=== PATIENT | female | born 1970 | race Caucasian/White ===

== ENCOUNTER → 2018-05-10 09:46 | Outpatient (CLI) | payer MEDICARE, SELFPAY ==
--- NOTE | 2018-05-10 09:56 | XR_ITS ---
XR hand LT min 3V HISTORY: ITS.REASON: RT HAND PAIN,DEFORMITY OF FINGERS ON BOTH HANDS ORDERING PHYSICIAN: Dagmar Ames PATIENT AGE: 47 years COMPARISON: None FINDINGS: No fracture or dislocation. No lytic or blastic change. There is normal mineralization.. The joint spaces are well-preserved. No significant degenerative/arthritic changes. No erosive changes evident.. IMPRESSION: Negative, no acute finding
--- NOTE | 2018-05-10 09:56 | XR_ITS ---
XR hand RT min 3V HISTORY: Pain and deformity ORDERING PHYSICIAN: Dagmar Ames PATIENT AGE: 47 years COMPARISON: None FINDINGS: There is flexion of the second digit. Cortical irregularity with subtle erosive change is present at the tuft of the distal phalanx of the second digit. No other significant anomalies are evident. IMPRESSION: Cortical irregularity with questionable erosive change involving the tuft of the distal phalanx of the second digit with flexion deformity of the second digit. This could be related to prior trauma or even osteomyelitis. Please correlate clinical findings,
== END ==
PROVIDERS: PCP Internal Medicine Adolescent Medicine; Visit Provider Nurse Practitioner Family
DX: M79.641 Pain in right hand (principal); M20.001 Unspecified deformity of right finger(s); M20.002 Unspecified deformity of left finger(s)
CPT/HCPCS: 73130

== ENCOUNTER → 2018-05-18 10:19 | Outpatient (CLI) | payer MEDICARE, SELFPAY ==
--- NOTE | 2018-05-18 09:03 | MM_ITS ---
MM Dig screening mamm BI w/CAD ORDERING PHYSICIAN : Yoana Palacios PATIENT AGE: 47 years GENDER: Female COMPARISON: December 2016 Also studies dating back to July 20122010 INDICATION: ITS.REASON: SCREENING. No hormones no new complaints. Patient does not speak Family history. Mother with breast cancer premenopausal TECHNIQUE: Standard CC and MLO images were obtained. R2 CAD reviewed. . FINDINGS: Patient is lost 15 pounds since last years exam. Moderately dense breast tissue bilaterally with actually overall slight more pronounced diffuse breast density. No exogenous hormones listed... But the increased fibroglandular elements bilaterally are suggestive of such. Increased breast density seen throughout both breast bilaterally. This denser breast pattern does decrease sensitivity of mammography however comparison to prior film very helpful. Self breast examination be encouraged in helpful in this patient. LEFT BREAST:On final review there is suggestion of a 9 mm area of nodularity which is more apparent on today's MLO view than previous studies. More likely summation shadow as it does seem to dissipate on other views. However does warrant warrant spot views in the AP and lateral view to further evaluate.. It is labeled X on the MLO view. Only question is seen on the cc view at the central breast towards upper-outer quadrant RIGHT BREAST:No prominent findings. There is a area of slight increased density which I believe reflects summation shadow likely accentuated by the diffuse increased plantar elements bilaterally. This vague round density It is labeled A on measuring up to 6 mm size at the superior central breast. Suggest spot views here as well when the patient returns. Note this report appear to be completed & finalized in the dictation system near 2 weeks ago but now show back up on my draft less and is re-signed IMPRESSION--------- : There is increased fibroglandular prominent throughout both breast since prior studies.. The patient denies exogenous hormones. Thus this may reflect her interval weight loss along and/or possible possibly premenstrual status Left breast.:. Vague 9 mm area of more focal density at the superior central breast on MLO view., 1:00. Most likely summation shadow and a reflection of the increased glandular elements but would recommend additional CC and MLO spot views to further evaluate. Right breast.: When the patient returns also suggest spot views right breast to further imaging questionable subtle 6 mm area of density superior breast towards 11 o'clock position. Again this also likely reflects reflection of summation shadow in the increased glandular elements accentuating elements. Recommend CC and MLO spot views here right as well. I favor these are summation shadows and may dissipate on the spot views But if These areas persist on spot views, then ultrasound may be warranted subsequent to further evaluate. BI-RADS Category: 0 Need Additional Imaging Evaluaiton RECOMMENDED FOLLOW-UP: IMM - IMMEDIATE FOLLOW-UP RECOMMENDED (A letter has been sent to the patient regarding results of the study.)
--- NOTE | 2018-05-18 10:24 | MM_ITS ---
MM Dig screening mamm BI w/CAD ORDERING PHYSICIAN : Yoana Palacios PATIENT AGE: 47 years GENDER: Female COMPARISON: December 2016 Also studies dating back to July 20122010 INDICATION: ITS.REASON: SCREENING. No hormones no new complaints. Patient does not speak Family history. Mother with breast cancer premenopausal TECHNIQUE: Standard CC and MLO images were obtained. R2 CAD reviewed. . FINDINGS: Patient is lost 15 pounds since last years exam. Moderately dense breast tissue bilaterally with actually overall slight more pronounced diffuse breast density. No exogenous hormones listed... But the increased fibroglandular elements bilaterally are suggestive of such. Increased breast density seen bilaterally which does somewhat decrease sensitivity of mammography however comparison to prior film very helpful. Self breast examination be encouraged in helpful in this patient. LEFT BREAST:On final review there is a 9 mm area of nodularity which is more apparent today than previous studies. More likely summation shadow but does warrant spot views in the AP and lateral view. It is labeled X on the MLO view. Only question is seen on the cc view at the central breast towards upper-outer quadrant RIGHT BREAST:No prominent findings. There is a area of slight increased density which I believe reflects the weight loss and summation shadow but this is labeled a on measuring up to 6 mm size at the superior central breast. Suggest spot views here as well when the patient returns. IMPRESSION--------- : There is increased fibroglandular prominent throughout both breast since prior studies.. The patient denies exogenous hormones. Thus this may reflect her interval weight loss along with possible possibly premenstrual status Left breast.:. 9 mm area of more focal density at the superior central breast, 1:00. Most likely summation shadow and a reflection of increased glandular elements but would recommend additional CC and MLO spot views. Right breast.: Question of very subtle 6 mm area of density superior breast towards 11 o'clock position. Again more likely reflection of summation shadow and the diffuse increased glandular elements. Recommend CC and MLO spot views here as well. I favor these are summation shadows But if These areas persist on spot views ultrasound may be warranted subsequent BI-RADS Category: 0 Need Additional Imaging Evaluaiton RECOMMENDED FOLLOW-UP: 3M - 3 MONTH FOLLOWUP (A letter has been sent to the patient regarding results of the study.)
== END ==
PROVIDERS: Family Provider Internal Medicine Adolescent Medicine; PCP Internal Medicine Adolescent Medicine; Visit Provider Nurse Practitioner Family
DX: Z12.31 Encounter for screening mammogram for malignant neoplasm of breast (principal)
CPT/HCPCS: 77067

== ENCOUNTER → 2018-06-08 13:45 | Outpatient (CLI) | payer MEDICARE, SELFPAY ==
--- NOTE | 2018-06-08 10:45 | MM_ITS ---
MM Dig mamm BI DX w/CAD, US breast RT complete, US breast LT complete INDICATION: Follow-up abnormal mammogram ORDERING PHYSICIAN: Yoana Palacios PATIENT AGE: 47 years COMPARISON: 05/18/2018, 01/06/2017 TECHNIQUE: Problem-solving views of both breasts along with bilateral breast ultrasound FINDINGS: Very dense fibroglandular tissue which decreases the sensitivity of mammography. Right breast: The areas of asymmetric density are less apparent on the spot compression views. No malignant appearing mass or malignant appearing microcalcification evident. Left breast: The asymmetric density in the retroareolar region on the left is less apparent on the spot compression views. Right breast ultrasound: Small complex cyst is present at 12:00 at 5 x 4 mm. Small nodes are present in the axilla. Left breast ultrasound: 4 mm cyst at 1:00. Small nodes in the axilla. IMPRESSION: No convincing evidence of malignancy. Areas of asymmetric density are less apparent on the spot compression views. Small bilateral complex breast cysts on ultrasound. Recommend bilateral 6 month mammographic and sonographic follow-up. BI-RADS Category: 3 Benign Finding Short Term Follow-up RECOMMENDED FOLLOW-UP: 6M - 6 MONTH FOLLOW-UP (A letter has been sent to the patient regarding results of the study.)
== END ==
PROVIDERS: Family Provider Internal Medicine Adolescent Medicine; PCP Internal Medicine Adolescent Medicine; Visit Provider Nurse Practitioner Family
DX: R92.8 Other abnormal and inconclusive findings on diagnostic imaging of breast (principal)
CPT/HCPCS: 77066

== ENCOUNTER → 2018-06-15 08:21 | Outpatient (CLI) | payer MEDICARE, SELFPAY | PROVIDERS: Family Provider Internal Medicine Adolescent Medicine; PCP Internal Medicine Adolescent Medicine; Visit Provider Nurse Practitioner Family | DX: R92.8 Other abnormal and inconclusive findings on diagnostic imaging of breast (principal) | CPT/HCPCS: 76641 ==

== ENCOUNTER → 2023-01-13 10:36 | Outpatient (CLI) | payer MEDICARE, SELFPAY ==
--- NOTE | 2023-01-13 10:41 | MM_ITS ---
PROCEDURE INFORMATION: Exam: MG Bilateral Screening 3D Mammography Exam date and time: 01/13/2023 10:37 AM Age: 52 years old Clinical indication: Screening examination TECHNIQUE: Imaging protocol: Bilateral Screening tomosynthesis and 2D mammography including computer-aided detection (CAD) when performed. COMPARISON: 1. MG DXBI MM Dig mamm BI DX w/CAD 06/08/2018 1:58 PM 2. MG SCBI MM Dig screening mamm BI w/CAD 05/18/2018 10:45 AM FINDINGS: MAMMOGRAPHY: Breast composition: There are scattered areas of fibroglandular density. Mass: None. Architectural distortion: None. Calcifications: No suspicious calcifications. Asymmetric density: None. Skin thickening: None. Axillary adenopathy: None. IMPRESSION: No mammographic evidence of malignancy. Annual screening is recommended unless otherwise clinically indicated. ASSESSMENT: BI-RADS Category 1: Negative
== END ==
PROVIDERS: PCP Internal Medicine Adolescent Medicine; Visit Provider Internal Medicine Adolescent Medicine
DX: Z12.31 Encounter for screening mammogram for malignant neoplasm of breast (principal)
CPT/HCPCS: 77063; 77067

== ENCOUNTER → 2023-10-06 11:18 | Outpatient (CLI) | payer MEDICARE, SELFPAY ==
[2023-10-06 11:47] LABS: Basophils % 0.7 % (0.1-2.0); Eosinophils # 0.2 K/mm3 (0.0-0.4); Eosinophils % 3.7 % (0.1-12.0); Hematocrit 39.5 % (37.0-47.0); Hemoglobin 13.1 g/dL (12.2-16.2); Lymphocytes # 2.5 K/mm3 (0.7-4.5); Lymphocytes % 44.8 % (10-50); Mean Corpuscular HGB Conc 33.1 g/dL (31.8-35.4); Mean Corpuscular Hemoglobin 29.9 pg (27.0-31.2); Mean Corpuscular Volume 90.3 fl (81-99); Mean Platelet Volume 7.9 fl (7.4-10.4); Monocytes # 0.4 K/mm3 (0.1-1.0); Monocytes % 7.9 % (1.7-9.3); Neutrophils # 2.4 K/mm3 (1.8-7.8); Neutrophils % 42.9 % (37.0-80.0); Platelet Count 220 K/mm3 (142-424); Red Blood Count 4.38 M/mm3 (4.20-5.40); Red Cell Distribution Width 14.3 % (11.5-17.5); White Blood Count 5.6 K/mm3 (4.8-10.8)
[2023-10-06 12:36] LABS: Alanine Aminotransferase 14 U/L (12-78); Albumin Level 4.2 g/dl (3.5-5.0); Albumin/Globulin Ratio 1.3 (1.1-1.8); Alkaline Phosphatase 79 U/L (38-126); Anion Gap 9.6 mEq/L (5-15); Aspartate Amino Transferase 27 U/L (14-36); Bilirubin,Total 1.1 mg/dl (0.2-1.3); Blood Urea Nitrogen 18 mg/dl (7-17); Calcium 9.1 mg/dl (8.4-10.2); Carbon Dioxide 24 mmol/L (22.0-30.0); Chloride 108 mmol/L (98-107); Chol/HDL Ratio 2.8 (1-3.5); Cholesterol 187 mg/dl (140-200); Estimated Glomerular Filt Rate 74 ml/min (>60); GFR (African American) 90 ML/MIN (>60); Globulin 3.2 g/dL (1.3-3.2); Glucose 89 mg/dl (74-100); HDL Cholesterol 68 mg/dl (40-60); Potassium 3.6 mmoL/L (3.5-5.1); Sodium 138 mmol/L (136-145); Total Protein,Serum 7.4 g/dl (6.3-8.2); Triglycerides 95 mg/dl (30-150); VLDL Cholesterol 19 mg/dL (0-40)
[2023-10-06 12:47] LABS: Direct LDL Cholesterol 83.44 mg/dL (100-129)
[2023-10-06 13:07] LABS: Thyroid Stimulating Hormone 4.15 uIU/mL (0.465-4.68)
== END ==
PROVIDERS: PCP Nurse Practitioner Family; Visit Provider Nurse Practitioner Family
DX: I73.01 Raynaud's syndrome with gangrene (principal); E03.9 Hypothyroidism, unspecified
CPT/HCPCS: 36415; 80053; 80061; 84443; 85025

== ENCOUNTER 2024-01-19 10:52 | Outpatient (CLI) | payer MEDICARE, SELFPAY ==
--- NOTE | 2024-01-19 10:56 | MM_ITS ---
PROCEDURE INFORMATION: Exam: MG Bilateral Screening 3D Mammography Exam date and time: 01/19/2024 10:45 AM Age: 53 years old Clinical indication: Screening examination TECHNIQUE: Imaging protocol: Bilateral Screening tomosynthesis and 2D mammography including computer-aided detection (CAD) when performed. COMPARISON: 1. MG MM DIG SCREENING MAMM BI W/CAD 01/13/2023 10:37 AM 2. MG DXBI MM Dig mamm BI DX w/CAD 06/08/2018 1:58 PM FINDINGS: MAMMOGRAPHY: Breast composition: There are scattered areas of fibroglandular density. Mass: None. Architectural distortion: None. Calcifications: No suspicious calcifications. Asymmetric density: None. Skin thickening: None. Axillary adenopathy: None. IMPRESSION: No mammographic evidence of malignancy. Annual screening is recommended unless otherwise clinically indicated. ASSESSMENT: BI-RADS Category 1: Negative
== END 2024-01-19 23:59 ==
PROVIDERS: PCP Nurse Practitioner Family; Visit Provider Nurse Practitioner Family
DX: Z12.31 Encounter for screening mammogram for malignant neoplasm of breast (principal)
CPT/HCPCS: 77063; 77067

== ENCOUNTER 2025-01-24 11:07 | Outpatient (CLI) | payer MEDICARE, SELFPAY ==
[2025-01-24 11:40] LABS: Basophils # 0.1 K/mm3 (0-0.2); Basophils % 0.7 % (0.1-2.0); Eosinophils # 0.2 K/mm3 (0.0-0.4); Eosinophils % 3.2 % (0.1-12.0); Hematocrit 40.2 % (37.0-47.0); Hemoglobin 13.2 g/dL (12.2-16.2); Lymphocytes # 2.4 K/mm3 (0.7-4.5); Mean Corpuscular HGB Conc 32.8 g/dL (31.8-35.4); Mean Corpuscular Hemoglobin 28.7 pg (27.0-31.2); Mean Corpuscular Volume 87.4 fl (81-99); Mean Platelet Volume 9.3 fl (7.4-10.4); Monocytes # 0.7 K/mm3 (0.1-1.0); Monocytes % 9.9 % (1.7-9.3); Neutrophils # 3.6 K/mm3 (1.8-7.8); Neutrophils % 52.1 % (37.0-80.0); Platelet Count 244 K/mm3 (142-424); Red Cell Distribution Width 13.9 % (11.5-17.5); White Blood Count 6.9 K/mm3 (4.8-10.8)
[2025-01-24 12:00] LABS: Alanine Aminotransferase 12 U/L (12-78); Albumin Level 4.6 g/dl (3.5-5.0); Albumin/Globulin Ratio 1.5 (1.1-1.8); Alkaline Phosphatase 71 U/L (38-126); Anion Gap 16.1 mEq/L (5-15); Aspartate Amino Transferase 24 U/L (14-36); Bilirubin,Total 1.4 mg/dl (0.2-1.3); Blood Urea Nitrogen 20 mg/dl (7-17); Calcium 10.3 mg/dl (8.4-10.2); Carbon Dioxide 22 mmol/L (22.0-30.0); Chloride 106 mmol/L (98-107); Chol/HDL Ratio 2.8 (1-3.5); Cholesterol 205 mg/dl (140-200); Estimated Glomerular Filt Rate 74 ml/min (>60); GFR (African American) 90 ML/MIN (>60); Globulin 3.1 g/dL (1.3-3.2); Glucose 90 mg/dl (74-100); HDL Cholesterol 72 mg/dl (40-60); Magnesium 2.1 mg/dl (1.6-2.3); Potassium 4.1 mmoL/L (3.5-5.1); Sodium 140 mmol/L (136-145); Total Protein,Serum 7.7 g/dl (6.3-8.2); Triglycerides 112 mg/dl (30-150); VLDL Cholesterol 22 mg/dL (0-40)
[2025-01-24 12:11] LABS: Direct LDL Cholesterol 78.97 mg/dL (100-129)
[2025-01-24 12:16] LABS: Free T4 (Free Thyroxine) 1.67 ng/dl (0.78-2.19)
[2025-01-24 12:31] LABS: Thyroid Stimulating Hormone 5.62 uIU/mL (0.465-4.68)
[2025-01-24 12:50] LABS: Vitamin B12 654 pg/mL (239-931)
[2025-01-25 08:45] LABS: Triiodothyronine (T3) Free 2.4 pg/mL (2.0-4.4)
== END 2025-01-24 23:59 | disposition home or self-care (01) ==
LOC: LAB 11:09
PROVIDERS: PCP Nurse Practitioner Family; Visit Provider Nurse Practitioner Family
DX: E03.9 Hypothyroidism, unspecified (principal); I73.00 Raynaud's syndrome without gangrene; M79.671 Pain in right foot; M79.672 Pain in left foot; F41.9 Anxiety disorder, unspecified
CPT/HCPCS: 36415; 80053; 80061; 82607; 83735; 84436; 84439; 84443; 84481; 85025

== ENCOUNTER 2025-04-15 13:14 | Outpatient (CLI) | payer MEDICARE, SELFPAY ==
[2025-04-15 15:13] LABS: T4 (Thyroxine) 12.1 ug/dl (5.53-11.0)
[2025-04-15 15:14] LABS: Free T4 (Free Thyroxine) 1.85 ng/dl (0.78-2.19)
[2025-04-16 12:14] LABS: Triiodothyronine (T3) Free 2.3 pg/mL (2.0-4.4)
== END 2025-04-15 23:59 | disposition home or self-care (01) ==
LOC: LAB 13:15
PROVIDERS: PCP Nurse Practitioner Family; Visit Provider Nurse Practitioner Family
DX: E03.9 Hypothyroidism, unspecified (principal)
CPT/HCPCS: 36415; 84436; 84439; 84443; 84481

== ENCOUNTER 2025-05-16 09:55 | Outpatient (CLI) | payer MEDICARE, SELFPAY ==
--- NOTE | 2025-05-16 10:00 | MM_ITS ---
PROCEDURE INFORMATION: Exam: MG Bilateral Screening 3D Mammography Exam date and time: 05/16/2025 10:03 AM Age: 54 years old Clinical indication: Screening examination TECHNIQUE: Imaging protocol: Bilateral Screening tomosynthesis and 2D mammography including computer-aided detection (CAD) when performed. Best images possible due to limited mobility. COMPARISON: 1. MG MM DIG SCREENING MAMM BI W/CAD 01/19/2024 10:45 AM 2. MG MM DIG SCREENING MAMM BI W/CAD 01/13/2023 10:37 AM FINDINGS: MAMMOGRAPHY: Breast composition: The breasts are heterogeneously dense, which may obscure small masses. Mass: None. Architectural distortion: None. Calcifications: No suspicious calcifications. Asymmetric density: None. Skin thickening: None. Axillary adenopathy: None. Other findings: There is limited visualization of the posterior tissues.Limited study secondary to patient mobility. Correlation with a physical exam is important. IMPRESSION: No mammographic evidence of malignancy. Annual screening is recommended unless otherwise clinically indicated. ASSESSMENT: BI-RADS Category 1: Negative.
== END 2025-05-16 23:59 | disposition home or self-care (01) ==
PROVIDERS: PCP Nurse Practitioner Family; Visit Provider Nurse Practitioner Family
DX: Z12.31 Encounter for screening mammogram for malignant neoplasm of breast (principal); R92.333 Mammographic heterogeneous density, bilateral breasts
CPT/HCPCS: 77063; 77067